=== PATIENT | male | born 1990 | race African-American/Black ===

== ENCOUNTER 2017-06-10 08:19 | Day surgery (SDC) | payer BC ==
[~2017-06-10] VITALS: Ht 180.3 cm; Wt 169.1 kg
[~2017-06-10 08:19] MED LIST: ANTIVERT25 MG PO; FORTAMET1000 M1 PO; LIPITOR40 MG PO; MEDROL DOSEPAK4 MG PO; PROAIR HFA8.5 GM IH; ZOFRAN4 MG PO
[2017-06-10 09:27] VITALS: BP 123/60
[2017-06-10 22:00] VITALS: BP 134/67
[2017-06-10 23:05] VITALS: BP 140/70
[2017-06-11] VITALS (7 sets, daily range): BP systolic 112–165; BP diastolic 56–76
[2017-06-11 05:24] LABS: HEMATOCRIT 44.5 % (38.0-50.0); MCH 27.8 PG (29.0-34.0); MCHC 32.8 G/DL (30.0-36.0); MCV 84.8 FL (86-99); PLATELET COUNT 183 K/uL (156-360); RBC DIS.WIDTH-CV 13.6 % (11.8-14.6); RBC DIS.WIDTH-SD 42.2 % (39-53); RED BLOOD COUNT 5.25 M/uL (4.00-5.50)
[2017-06-11 05:29] LABS: INTER. NORMALIZED RATIO 1.2
[2017-06-11 05:32] LABS: PTT 26.7 SEC (25-37)
[2017-06-11 05:37] LABS: HEMOGLOBIN 14.6 G/DL (12.5-16.6)
[2017-06-11 05:56] LABS: TROP-I INTERPRETATION NEGATIVE; TROPONIN-I < 0.01 ng/mL (0.0-0.30)
[2017-06-11 05:58] LABS: CHLORIDE 102 MEQ/L (99-109); CREATININE 1.2 MG/DL (0.6-1.3); GFR ESTIMATE (CALCULATED) > 59 mL/min/ (58.99-99999); GLUCOSE 156 mg/dL (70-99); PHOSPHORUS 4.3 mg/dL (2.5-4.9); POTASSIUM 4.7 MEQ/L (3.7-5.4); SODIUM 136 MEQ/L (136-147); UREA NITROGEN (BUN) 16 mg/dL (9-23)
[2017-06-11 12:45] LABS: TROP-I INTERPRETATION NEGATIVE; TROPONIN-I < 0.01 ng/mL (0.0-0.30)
== END 2017-06-11 16:11 | disposition home or self-care (01) ==
LOC: SDC 08:19 → 2SOUTH 20:35 → 2EAST 20:35 → 2SOUTH 20:35 → ENRESERV 20:46 → 2EAST 22:05
PROVIDERS: Hospitalist; Internal Medicine Cardiovascular Disease; Podiatrist Foot & Ankle Surgery
DX: M12.871 Other specific arthropathies, not elsewhere classified, right ankle and foot (principal); Q66.89 Other specified congenital deformities of feet; M25.571 Pain in right ankle and joints of right foot; M76.821 Posterior tibial tendinitis, right leg; M24.571 Contracture, right ankle; R07.89 Other chest pain; I10 Essential (primary) hypertension; E11.65 Type 2 diabetes mellitus with hyperglycemia; Z79.84 Long term (current) use of oral hypoglycemic drugs; Z91.19 Patient's noncompliance with other medical treatment and regimen; E66.9 Obesity, unspecified; Z68.43 Body mass index [BMI] 50.0-59.9, adult; Z88.5 Allergy status to narcotic agent; Z88.2 Allergy status to sulfonamides
CPT/HCPCS: 71275; 73630; 76000; 80069; 82948; 84484; 85027; 85610; 85730; 93005; 94640; 94760; 94799; 99202; C1713; G0378; J0131; J0330; J0690; J1100; J1170; J1200; J1885; J2250; J2405; J2795; J2930; J3010; S0020; S0028

== ENCOUNTER 2017-07-06 20:15 | Emergency (ER) | payer BC ==
[~2017-07-06] VITALS: Ht 180.3 cm; Wt 165.0 kg
[2017-07-06 21:15] LABS: HEMATOCRIT 44.9 % (38.0-50.0); HEMOGLOBIN 15.4 G/DL (12.5-16.6); MCH 28.8 PG (29.0-34.0); MCHC 34.3 G/DL (30.0-36.0); MCV 84.1 FL (86-99); PLATELET COUNT 158 K/uL (156-360); RBC DIS.WIDTH-CV 13.4 % (11.8-14.6); RBC DIS.WIDTH-SD 41.2 % (39-53); RED BLOOD COUNT 5.34 M/uL (4.00-5.50); WHITE BLOOD COUNT 7.2 K/uL (4.1-10.2)
[2017-07-06 21:29] LABS: CHLORIDE 102 MEQ/L (99-109); POTASSIUM 3.8 MEQ/L (3.7-5.4); SODIUM 136 MEQ/L (136-147)
[2017-07-06 21:34] LABS: CREATININE 1.1 MG/DL (0.6-1.3); GFR ESTIMATE (CALCULATED) > 59 mL/min/ (58.99-99999); GLUCOSE 112 mg/dL (70-99); UREA NITROGEN (BUN) 13 mg/dL (9-23)
[2017-07-06 21:39] LABS: TROP-I INTERPRETATION NEGATIVE; TROPONIN-I < 0.01 ng/mL (0.0-0.30)
[2017-07-07] MEDS ORDERED: ATIVAN0.5 MG PO (00:38)
[2017-07-07 00:53] VITALS: BP 128/50
[2017-07-07 09:08] LABS: THYROTROPIN (TSH) 2.1 MIU/L (0.4-5.5)
== END 2017-07-07 00:54 | disposition home or self-care (01) ==
LOC: EME 20:15 → EXP 20:15
DX: F41.9 Anxiety disorder, unspecified (principal); R07.9 Chest pain, unspecified; R51 Headache; R53.1 Weakness; Z63.4 Disappearance and death of family member; J45.909 Unspecified asthma, uncomplicated; E11.9 Type 2 diabetes mellitus without complications; I10 Essential (primary) hypertension; Z79.84 Long term (current) use of oral hypoglycemic drugs; Z88.2 Allergy status to sulfonamides
CPT/HCPCS: 70450; 71046; 80048; 84443; 84484; 85027; 90839; 93005; 99281; 99284